=== PATIENT | male | born 1955 | race Caucasian/White ===

== ENCOUNTER 2020-09-24 12:52 | Emergency (ER) | payer BC ==
[~2020-09-24] VITALS: Ht 175.3 cm; Wt 104.5 kg
[~2020-09-24 12:52] MED LIST: ASPIRIN 32325 MG/TAB PO; COZAAR100 MG PO; MOBIC 7.5MG7.5 MG PO
[2020-09-24 13:09] VITALS: TEMP 97.7
[2020-09-24 14:05] LABS: BASO % 0.7 % (0.0-2.0); EOS # 0.2 (0.0-0.7); EOS % 3.3 % (0-4.0); GRAN % 69.3 % (42.2-75.2); HEMATOCRIT 37.6 % (42.0-52.0); HEMOGLOBIN 12.1 g/dl (13.5-18.0); LYMPH # 0.9 (1.2-3.4); LYMPH % 15.7 % (20.0-51.0); MEAN CELL VOLUME 94 fl (80.0-100.0); MEAN CORPUSCULAR HEMOGLOBIN 30 pg (27.0-31.0); MEAN CORPUSCULAR HGB CONC 32 g/dl (33.0-37.0); MEAN PLATELET VOLUME 8.6 fl (7.4-10.4); MONO # 0.6 (0.1-0.6); MONO % 10.5 % (1.7-9.3); PLATELET COUNT 324 K/mm3 (130-400); REDCELL DISTRIBUTION WIDTH-CV 12.1 % (11.5-14.5)
[2020-09-24 14:09] LABS: BILIRUBIN,TOTAL 0.5 mg/dL (0.0-1.0); CALCIUM 9.4 mg/dL (8.4-10.2); CREATININE, serum 0.81 (0.66-1.25); POTASSIUM 3.6 mmol/L (3.4-5.0); TOTAL PROTEIN 7.5 gm/dL (6.4-8.2)
[2020-09-24 15:20] VITALS: BP 125/67; PULSE 80
== END 2020-09-24 15:25 | disposition home or self-care (01) ==
LOC: COL.ER 12:52
PROVIDERS: Family Medicine
DX: R60.0 Localized edema (principal); R39.198 Other difficulties with micturition; Z87.891 Personal history of nicotine dependence

== ENCOUNTER 2022-06-20 08:29 | Day surgery (SDC) | payer BC ==
[2022-06-20] VITALS (8 sets, daily range): BP systolic 123–177; BP diastolic 64–94; PULSE 58–74; TEMP 97.9
[~2022-06-20] VITALS: Ht 175.3 cm; Wt 105.2 kg
[~2022-06-20 08:29] MED LIST changes: -ASPIRIN 32325 MG/TAB PO; +ASPIRIN E.C. 8181 MG PO; -MOBIC 7.5MG7.5 MG PO; +MOBIC15 MG PO
[2022-06-20 09:24] LABS: HEMATOCRIT 43.5 % (42.0-52.0); HEMOGLOBIN 14.4 g/dl (13.5-18.0); MEAN CELL VOLUME 92 fl (80.0-100.0); MEAN CORPUSCULAR HEMOGLOBIN 30 pg (27-31); MEAN CORPUSCULAR HGB CONC 33 g/dl (33.0-37.0); MEAN PLATELET VOLUME 9.2 fl (7.4-10.4); PLATELET COUNT 178 K/mm3 (130-400); RED BLOOD COUNT 4.75 M/mm3 (4.20-5.60); REDCELL DISTRIBUTION WIDTH-CV 12.4 % (11.5-14.5)
[2022-06-20 09:38] LABS: PROTHROMBIN TIME 11.9 SECONDS (9.7-12.8)
[2022-06-20 09:41] LABS: CREATININE, serum 0.89 mg/dL (0.72-1.25); PARTIAL THROMBOPLASTIN TIME 31.5 SECONDS (26.0-37.0); POTASSIUM 4.2 mmol/L (3.5-4.5)
[2022-06-20] MEDS ORDERED: NORVASC 5MG5 MG/TAB PO (09:43)
[2022-06-20] MEDS ORDERED: LIPITOR 40MG TA40 MG PO (09:43)
[2022-06-20] MEDS ORDERED: FLONASE NASAL S16 GM NS (09:44)
[2022-06-20] MEDS ORDERED: PROBIOTIC ACID1 EAC3 PO (09:44)
[2022-06-20] MEDS ORDERED: FLOMAX 0.40.4 MG/CAP PO (09:45)
[2022-06-20] MEDS ORDERED: B-121000 MCG PO (09:45)
--- NOTE | 2022-06-20 10:33 | NUR ---
SEE MERGE FOR ALL MEDICATIONS, INTERVENTIONS AND VITALS.
--- NOTE | 2022-06-20 11:38 | NUR ---
Pt is back to [facility] after [facility]. Report received from Glen S[facility]NCHEZ. Pt settled back into room 10, updated on poc. lunch ordered. TR band in place to rt wrist, cms intact distal. call light in reach.
[2022-06-20] MEDS ORDERED: COREG 3.123.125 MG/T PO (13:31)
[2022-06-20] MEDS ORDERED: CEPHALEXIN500 M1 PO (13:32)
--- NOTE | 2022-06-20 14:30 | NUR ---
Pt ready for discharge. Javan's TR band has been deflated with no problem, site dressed with bandaid, folded 2x2 and coban. He has been up and amb with steady gait, has had a nice lunch which he enjoyed. Loop removal site has remained free of any evidence of drainage or swelling. We discussed dc/fu and rx instructions r/t cardiac cath discharge and loop removal. Pt and verbalized understanding. Pt allowed me to take him to exit in a wheelchair.
== END 2022-06-20 18:54 | disposition home or self-care (01) ==
LOC: COL.CAR 08:29
PROVIDERS: Internal Medicine Cardiovascular Disease
DX: I42.8 Other cardiomyopathies (principal); I11.0 Hypertensive heart disease with heart failure; I50.42 Chronic combined systolic (congestive) and diastolic (congestive) heart failure; E78.49 Other hyperlipidemia; I77.811 Abdominal aortic ectasia; I47.1 Supraventricular tachycardia; Z86.711 Personal history of pulmonary embolism; M79.605 Pain in left leg; M79.604 Pain in right leg; I63.89 Other cerebral infarction; Z87.891 Personal history of nicotine dependence
CPT/HCPCS: J0690; J1644; J2250; J3010; Q9967